=== PATIENT | male | born 1975 | race Caucasian/White ===

== ENCOUNTER 2020-10-20 23:11 | Emergency (ER) | payer BC, SELFPAY ==
--- NOTE | ~2020-10-20 | CT_ITS ---
EXAMINATION: CT SOFT TISSUE NECK WITH CONTRAST CLINICAL INFORMATION: Left-sided neck tenderness. Left tonsillar swelling. Dysphagia. COMPARISON: None TECHNIQUE: Following the intravenous administration of 60 mL of Omnipaque 350 intravenous contrast, helical imaging was performed in the axial plane with generation of coronal and sagittal reformatted images. This CT examination was performed using dose optimization techniques as appropriate, variously including the following: *Automated exposure control *Adjustment of mA and/or kV according to patient size (this includes techniques or standardized protocols for targeted exams where dose is matched to indication/reason for exam; i.e. extremities or head) *Use of iterative reconstruction technique DLP: 448 mGy-cm FINDINGS: There is left tonsillar swelling. Within the left palatine tonsil there is an area of hypoattenuation consistent with collection in 0.9 cm. This is seen on series 2 image 42. No cervical adenopathy is identified. The parotid glands are homogeneous in attenuation. The submandibular glands are normal. The laryngeal structures are normal. The carotid sheath vasculature opacify normally. No retropharyngeal fluid collection is seen. The thyroid gland is normal. The superior mediastinum is unremarkable. The lung apices are clear. The mastoid air cells and visualized portions of the paranasal sinuses are well-aerated. The temporomandibular joints are normal. No periapical disease is identified. No osseous abnormalities are seen. The imaged portions of the brain parenchyma are unremarkable. CT/CT soft tissue neck w con IMPRESSION: Asymmetrically enlarged left palatine tonsil with associated fluid collection suggestive of an abscess.
[2020-10-20 23:19] VITALS: BP 118/81; PULSE 111; RESP 18; TEMP 36.6; O2SAT 99; BMI 23.5
[2020-10-20 23:49] VITALS: BP 144/78; PULSE 110; RESP 16; TEMP 37.1; O2SAT 99; BMI 26.6
--- NOTE | 2020-10-20 23:51 | ED.GENADULT ---
HPI - General Adult General Chief complaint: General Medical Stated complaint: lump in throat Time Seen by Provider: 10/20/20 23:17 Source: patient Mode of arrival: ambulatory Limitations: no limitations History of Present Illness HPI narrative: 45 y/o male with no significant medical history presents to the ER with worsening left sided neck and throat pain for the last 4 days. He reports he can feel a swollen lump on the side of his left neck. He has had increased mucus production and painful swallowing. He has had poor PO intake because of the pain. He denies any fever or chills. No headache. He reports his voice is more scratchy. He has some left sided ear pain as well. He denies N/V/D or abdominal pain. No nasal congestion, cough or SOB. He is not vaccinated against COVID> MD complaint: left sided neck and throat pain Onset (ago): day(s) (4) Location: mouth and neck Radiation: non-radiation Severity: moderate Severity scale (1-10): 7 Quality: sharp Pain Consistency: constant Relieving factors: medication Exacerbating factors: eating Associated symptoms: denies other symptoms Treatments prior to arrival: other (tylenol) Related Data Previous Rx's Medication Instructions Recorded amoxicillin 875 mg-potassium 1 tab PO BID #20 tab 10/21/20 clavulanate 125 mg tablet (Augmentin) ibuprofen 600 mg tablet 600 mg PO Q8H PRN #14 tab 10/21/20 Allergies Allergy/AdvReac Type Severity Reaction Status Date / Time No Known Allergies Allergy Verified 10/20/20 23:25 [No Known Allergies*] Review of Systems Constitutional: Constitutional: Denies chills and Denies fever(s) Eyes: Eyes: Reports no additional eye complaints ENT: Reports Normal hearing present, Denies dental pain, Denies dizziness, Reports otalgia, Denies facial pain, Reports hoarseness, Denies mouth pain, Reports neck mass, Reports neck pain and Reports sore throat Cardiovascular: Cardiovascular: Denies chest pain and Reports rapid heart rate Respiratory: Respiratory: Denies cough and Denies wheezing Gastrointestinal: Gastrointestinal: Denies abdominal pain, Denies diarrhea, Denies nausea and Denies vomiting Musculoskeletal: Musculoskeletal: Reports neck pain Integumentary/Breasts: Skin/Breast: Denies lesions and Denies rash Neurologic: Reports Normal hearing present and Denies dizziness Psychiatric: Psychiatric: Reports anxiety Hematologic/Lymphatic: Hematologic/Lymphatic: Denies easy bleeding and Denies easy bruising Allergic/Immunologic: Allergic/Immunologic: Denies wheezing PMFSH Social History Social History Advance Directives: No Physical Exam Vital Signs: Vital Signs: Last Vital Signs Temp 98.8 F 10/21/20 00:25 Pulse 110 H 10/21/20 00:25 Resp 16 10/21/20 00:25 BP 144/78 H 10/21/20 00:25 Pulse Ox 99 10/21/20 00:25 Body Mass Index 26.6 Const: General: cooperative, healthy appearing, comfortable and no acute distress Nutritional Appearance: thin Orientation/consciousness: patient oriented x3 Limitations: no limitations HENMT: Head: Yes normal to inspection, Yes normocephalic and Yes atraumatic Ears: hearing grossly normal bilaterally, external ears normal and TM's normal bilaterally General nose exam: Normal external nose present and Normal nares present Face and sinus: Yes normal facial exam and Yes face symmetric Mouth: Normal oral and palatal mucosa present, lip normal, tongue normal, moist mucous membranes, no audible dysphonia and no drooling Teeth and gingiva: dentition normal and gingiva normal Throat: Yes uvula midline, Yes abnormal tonsil (left tonsillar swelling and erythema) and Yes uvular edema Eyes: General: appearance normal, both eyes and all related structures Neck: Neck: Yes normal visual inspection, Yes full ROM, Yes supple, Yes lymphadenopathy (shottysubmandibular LN, left anterior cervical chain 1 cm tender node) and Yes tender (left lateral neck ) Thyroid: Thyroid normal Lymphatic: lymphadenopathy Chest: Chest palpation & inspection: normal inspection of the chest Resp: Effort & Inspection: normal respiratory effort and able to speak in complete sentences Auscultation: clear to auscultation bilaterally Cardio: Rate: tachycardic Rhythm: regular rhythm Heart sounds: S1 normal heart sound present and S2 normal heart sound present GI: Inspection: Yes normal to inspection Palpation (GI): Soft to palpation and nontender Auscultation: normal bowel sounds Skin: General skin exam: no rashes or lesions noted Neuro: General: patient oriented x3 Cranial nerves: Yes CN's II-XII intact bilaterally, Yes Bilaterally intact EOM present, Yes Midline tongue present, Yes Normal gag reflex present and Yes Normal hearing present Extrem: General: Yes normal to inspection Psych: Appearance: grossly normal and well kempt Mental Status: mental status grossly normal Speech and movement: Normal speech and movement present and Clear speech present Course Course Course Narrative: 45 y/o male presenting with left sided neck and throat pain for the last 4 days. Exam reveals asymmetric tonsillar swelling and erythema without exudates concerning for possible abscess. His airway is patent and he is speaking in complete sentences. He is tachycardic on arrival. Will get labs, lactic acid, blood cultures and CT scan w/ contrast for further evaluation. Reevaluation(s) Reevaluation #1: 1:00 am- WBC 14.5 with normal lactic acid. COVID and Strep are negative. Will give dose of IV Unasyn and Decadron for possible peritonsillar abscess. CT scan is pending. Reevaluation #2: CT scan showing <1 cm palatine abscess. No role for drainage at this time. He is able to eat and drink and his airway is patent. He is non-toxic appearing. He is stable for discharge home with PO antibiotics and close outpatient follow up. Patient agrees with plan and will come back to the ER if symptoms worsen. Medical Decision Making Lab Data Result diagrams: 10/21/20 00:20 10/21/20 00:19 Labs: Lab Results 10/21/20 10/21/20 10/21/20 Range/Units 00:19 00:19 00:20 WBC 14.5 H (4.8-10.8) X10*3/uL RBC 5.30 (4.60-5.80) X10*6/uL Hgb 15.9 (14.0-18.0) g/dl Hct 46.8 (42-52) % MCV 88.3 (80-98) fL MCH 30.0 (27.0-33.0) pg MCHC 34.0 (31.0-36.0) g/dl RDW 13.9 (11.0-16.0) % Plt Count 222 (160-400) X10*3/uL MPV 9.3 L (9.4-12.4) fL Immature Gran % (Auto) 0.2 (0.0-0.4) % Neut % (Auto) 78.9 H (45-73) % Lymph % (Auto) 13.1 L (20-40) % [place] % (Auto) 6.8 (2-11) % Eos % (Auto) 0.8 (0-4) % Baso % (Auto) 0.2 (0-2) % Lymph # (Auto) 1.9 (1.2-4.9) X10*3/uL [place] # (Auto) 1.0 (0.1-1.2) X10*3/uL Eos # (Auto) 0.1 (0.0-0.4) X10*3/uL Baso # (Auto) 0.0 (0.0-0.2) X10*3/uL Abs Immat Gran (auto) 0.03 (0.00-0.03) X10*3/uL Absolute Neuts (auto) 11.5 H (2.0-8.3) X10*3/uL Absolute Nucleated RBC 0.000 (0.0-0.012) X10*3/uL Nucleated RBC % (auto) 0.0 (0.0-0.2) /100WBC Sodium 140 (135-145) mmol/L Potassium 4.0 (3.3-5.1) mmol/L Chloride 107 (96-108) mmol/L Carbon Dioxide 25 (22-29) mmol/L Anion Gap 12 (12-20) BUN 7 L (9-16) mg/dL Creatinine 0.79 (0.5-1.4) mg/dL Estim Creat Clear Calc 109.2 Estimated GFR > 60 Random Glucose 95 (60-115) mg/dL Lactic Acid 0.8 (0.5-2.0) mmol/L Calcium 9.0 (8.4-10.2) mg/dL COVID-19 ([facility]) (Negative) COVID-19 Clin Com S. pyogenes GrpA [facility] (Negative) 10/21/20 10/21/20 Range/Units 00:20 00:20 WBC (4.8-10.8) X10*3/uL RBC (4.60-5.80) X10*6/uL Hgb (14.0-18.0) g/dl Hct (42-52) % MCV (80-98) fL MCH (27.0-33.0) pg MCHC (31.0-36.0) g/dl RDW (11.0-16.0) % Plt Count (160-400) X10*3/uL MPV (9.4-12.4) fL Immature Gran % (Auto) (0.0-0.4) % Neut % (Auto) (45-73) % Lymph % (Auto) (20-40) % [place] % (Auto) (2-11) % Eos % (Auto) (0-4) % Baso % (Auto) (0-2) % Lymph # (Auto) (1.2-4.9) X10*3/uL [place] # (Auto) (0.1-1.2) X10*3/uL Eos # (Auto) (0.0-0.4) X10*3/uL Baso # (Auto) (0.0-0.2) X10*3/uL Abs Immat Gran (auto) (0.00-0.03) X10*3/uL Absolute Neuts (auto) (2.0-8.3) X10*3/uL Absolute Nucleated RBC (0.0-0.012) X10*3/uL Nucleated RBC % (auto) (0.0-0.2) /100WBC Sodium (135-145) mmol/L Potassium (3.3-5.1) mmol/L Chloride (96-108) mmol/L Carbon Dioxide (22-29) mmol/L Anion Gap (12-20) BUN (9-16) mg/dL Creatinine (0.5-1.4) mg/dL Estim Creat Clear Calc Estimated GFR Random Glucose (60-115) mg/dL Lactic Acid (0.5-2.0) mmol/L Calcium (8.4-10.2) mg/dL COVID-19 ([facility]) Negative (Negative) COVID-19 Clin Com See Note S. pyogenes GrpA [facility] Negative (Negative) Discharge Plan Discharge Clinical Impression: Abscess, peritonsillar Patient Disposition: Home, Self-Care Instructions: Peritonsillar Abscess (ED) Additional Instructions: Your CT scan today showed a small fluid collection around your left tonsil. Treatment is with antibiotics and pain control with Motrin and Tylenol. Take the prescribed antibiotic as directed. Use warm salt water gargles several times per day. Recommend over the counter Chloraseptic [place] or Cepacol lozenges as needed for sore throat. Follow up with your primary care down in 2 days. Recommend following up with [facility] Specialist as well. Name and number below. If you have worsening pain, swelling, cannot swallow or any other concerning symptom call 911 or come back to the ER for further evaluation. Prescriptions: New amoxicillin-pot clavulanate [Augmentin] 875-125 mg tablet 1 tab PO BID Qty: 20 RF: 0 ibuprofen 600 mg tablet 600 mg PO Q8H PRN (Reason: fever or pain) Qty: 14 RF: 0 Referrals: Maycol Infante [Physician] - 2 days (peritonsillar abscess) Stand Alone Forms: Work/School Release
[2020-10-21 00:25] VITALS: BP 144/78; PULSE 110; RESP 16; TEMP 37.1; O2SAT 99
[2020-10-21 00:27] LABS: MANUAL DIFF FLAG NO
[2020-10-21 00:28] LABS: Basophils Percent Auto 0.2 % (0-2); Eosinophils Absolute Auto 0.1 X10*3/uL (0.0-0.4); Eosinophils Percent Auto 0.8 % (0-4); Hematocrit 46.8 % (42-52); Hemoglobin 15.9 g/dl (14.0-18.0); Imm Gran Abs Auto 0.03 X10*3/uL (0.00-0.03); Imm Gran Pct Auto 0.2 % (0.0-0.4); Lymphocytes Absolute Auto 1.9 X10*3/uL (1.2-4.9); Lymphocytes Percent Auto 13.1 % (20-40); Mean Corpuscular Volume 88.3 fL (80-98); Mean Platelet Volume 9.3 fL (9.4-12.4); Monocytes Percent Auto 6.8 % (2-11); Neutrophils Absolute Auto 11.5 X10*3/uL (2.0-8.3); Neutrophils Percent Auto 78.9 % (45-73); Platelet Count 222 X10*3/uL (160-400); Red Cell Distribution Width 13.9 % (11.0-16.0); White Blood Count 14.5 X10*3/uL (4.8-10.8)
[2020-10-21 00:45] LABS: COVID-19 Test Negative (Negative); IDNOW Serial# 9DD0AD1C; Strep A Nucleic Acid Negative (Negative)
[2020-10-21 00:47] LABS: Lactic Acid 0.8 mmol/L (0.5-2.0)
[2020-10-21 00:50] LABS: Anion Gap 12 (12-20); Blood Urea Nitrogen 7 mg/dL (9-16); Carbon Dioxide 25 mmol/L (22-29); Chloride 107 mmol/L (96-108); Creatinine Clr Calc Pharmacy 109.2; Estimated Glomerular Filt Rate > 60; Glucose Random 95 mg/dL (60-115); Sodium 140 mmol/L (135-145)
[2020-10-21] MEDS: 0.9 % Sodium Chloride 1,000 ML 999 ML IVCONT (00:58)
[2020-10-21] MEDS: dexAMETHasone sod phosphate 4 MG/ML VIAL 8 MG IVPUSH (01:00)
[2020-10-21] MEDS: Ampicillin Sodium/Sulbactam Na 1.5 GM in 0.9 % Sodium Chloride 100 ML IV (01:04)
[2020-10-21] MEDS: iohexoL 350 MG/ML 100 ML INFUS..BTL 85 ML IV (01:16)
[2020-10-21] MEDS: Ketorolac Tromethamine 15 MG/ML VIAL 30 MG IVPUSH (01:48)
== END 2020-10-21 02:08 | disposition home or self-care (01) ==
PROVIDERS: Physician Assistant; Emergency Provider Student in an Organized Health Care Education/Training Program
DX: J36 Peritonsillar abscess (principal); R00.0 Tachycardia, unspecified; Z20.822 Contact with and (suspected) exposure to COVID-19; J02.9 Acute pharyngitis, unspecified
CPT/HCPCS: 36415; 70491; 80048; 83605; 85025; 87040; 87635; 87651; 96365; 96375; 99284; J0295; J1100; J1885; Q9967